=== PATIENT | male | born 1950 | race African-American/Black ===

== ENCOUNTER 2017-05-16 23:13 | Emergency (ER) | payer SELFPAY ==
[~2017-05-16] VITALS: Ht 170.2 cm; Wt 84.0 kg
[2017-05-16 23:15] VITALS: BP 220/110; PULSE 83; RESP 24; TEMP 97.9; O2SAT 99
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
[2017-05-17] MEDS ORDERED: MORPHINE SULFATE 4 MG/ML INJ IV PUSH ONE (00:30)
[2017-05-17] MEDS ORDERED: ONDANSETRON HCL 4 MG/2 ML VIAL IVP ONE (00:30)
[2017-05-17] MEDS ORDERED: IOHEXOL 350 MG/ML 10 ML VIAL (for RAD DIAG) IVCONTRAST ONE (01:14)
[2017-05-17 01:17] LABS: AUTOMATED NEUTROPHIL # 9.3 TH/MM3 (1.8-7.7); BASOPHIL % 0.4 % (0.0-2.0); HEMATOCRIT 47.1 % (39.0-51.0); HEMO FLAGS DIFF FINAL; LYMPH % 9.5 % (9.0-44.0); MEAN CELL VOLUME 94.4 FL (80.0-100.0); MEAN CORPUSCULAR HEMOGLOBIN 32.6 PG (27.0-34.0); MEAN CORPUSCULAR HGB CONC 34.5 % (32.0-36.0); MONO % 4.6 % (0.0-8.0); NEUT % 85.5 % (16.0-70.0); PLATELET COUNT 299 TH/MM3 (150-450); RED BLOOD COUNT 4.99 MIL/MM3 (4.50-5.90); RED CELL DISTRIBUTION WIDTH 14.2 % (11.6-17.2); WHITE BLOOD COUNT 10.9 TH/MM3 (4.0-11.0)
--- NOTE | 2017-05-17 01:25 | RADRPT ---
EXAM DATE/TIME: 05/17/2017 01:01 [facility] COMPARISON: No previous studies available for comparison. INDICATIONS : Abdominal pain. MEDICAL HISTORY : None. SURGICAL HISTORY : None. ENCOUNTER: Initial ACUITY: 1 day PAIN SCORE: 0/10 LOCATION: Bilateral chest FINDINGS: Single AP view of the chest. The lungs are clear. Cardiomediastinal silhouette within normal limits. No evidence of pleural effusion or pneumothorax. CONCLUSION: No acute cardiopulmonary disease identified. Wilfrid Villarreal MD on May 17, 2017 at 1:23 Board Certified Radiologist. This report was verified electronically.
[2017-05-17 01:26] LABS: BLOOD, URINE NEG (NEG); COMMENT (UR) CULT NOT INDICATED; CULTURE IF INDICATED CULT NOT INDICATED; GLUCOSE,URINE 70 mg/dL (NEG); KETONE, URINE 80 mg/dL (NEG); MUCUS URINE FEW /lpf (OCC); NITRITE,URINE NEG (NEG); PH, URINE 8.5 (5.0-8.5); URINE COLOR LIGHT-YELLOW (YELLW/STRAW)
--- NOTE | 2017-05-17 01:36 | RADRPT ---
EXAM DATE/TIME: 05/17/2017 01:12 [facility] COMPARISON: No previous studies available for comparison. INDICATIONS : Abdominal pain with nausea and vomiting. IV CONTRAST: 95 cc Omnipaque 350 (iohexol) IV ORAL CONTRAST: No oral contrast ingested. RADIATION DOSE: 5.92 CTDIvol (mGy) MEDICAL HISTORY : None SURGICAL HISTORY : None. ENCOUNTER: Initial ACUITY: 1 day PAIN SCALE: 4/10 LOCATION: Bilateral abdomen TECHNIQUE: Volumetric scanning of the abdomen and pelvis was performed. Using automated exposure control and ad justment of the mA and/or kV according to patient size, radiation dose was kept as low as reasonably achievable to obtain optimal diagnostic quality images. DICOM format image data is available electro nically for review and comparison. FINDINGS: LOWER LUNGS: The visualized lower lungs are clear. LIVER: 5.6 x 3.9 x 3.9 cm mixed density lesion in the left lobe of the liver on image #14 of the axial image s. It demonstrates peripheral discontinuous nodular enhancement suggesting a hemangioma. Liver is oth erwise within normal limits. Gallbladder unremarkable. SPLEEN: Normal size without lesion. PANCREAS: Within normal limits. KIDNEYS: Multiple renal cysts bilaterally. No hydronephrosis. ADRENAL GLANDS: Within normal limits. VASCULAR: There is no aortic aneurysm. BOWEL/MESENTERY: No evidence of bowel dilatation. No free air or free fluid. Appendix not identified. ABDOMINAL WALL: Within normal limits. RETROPERITONEUM: There is no lymphadenopathy. BLADDER: No wall thickening or mass. REPRODUCTIVE: Enlarged prostate measuring 5.3 cm in axial dimension. INGUINAL: There is no lymphadenopathy or hernia. MUSCULOSKELETAL: Prominent right-sided facet arthrosis at L5-S1. Large bridging osteophyte right sacroiliac joint. CONCLUSION: 1. 5 cm lesion in the left lobe of the liver likely representing a hemangioma. This could be confirme d with a routine followup abdominal MRI with and without contrast. 2. Enlarged prostate. 3. Prominent facet arthrosis of the lower lumbar spine and prominent right-sided sacroiliac joint ost eoarthritis. Wilfird Villarreal MD on May 17, 2017 at 1:28 Board Certified Radiologist. This report was verified electronically.
[2017-05-17 01:38] LABS: ALKALINE PHOSPHATASE 89 U/L (45-117); ALT (GPT) 36 U/L (12-78); ANION GAP 11 MEQ/L (5-15); AST (GOT) 48 U/L (15-37); BICARBONATE 22.6 MEQ/L (21.0-32.0); BLOOD UREA NITROGEN 10 MG/DL (7-18); CHLORIDE 101 MEQ/L (98-107); GLOMERULAR FILTRATION RATE 61 ML/MIN (>89); SODIUM (NA) 135 MEQ/L (136-145); TOTAL BILIRUBIN ADULT 0.9 MG/DL (0.2-1.0)
[2017-05-17 01:39] LABS: APTT (PATIENT) 25.4 SEC (24.3-30.1); POTASSIUM 4.1 MEQ/L (3.5-5.1); PROTHROMBIN TIME - PATIENT 11.3 SEC (9.8-11.6)
[2017-05-17] MEDS ORDERED: TYLE325T PO (02:46)
--- NOTE | 2017-05-17 12:12 | EKG ---
Date Performed: 05/17/2017 Time Performed: 01:22:56 PTAGE: 66 years EKG: Sinus rhythm WITH SINUS ARRHYTHMIA WITH FIRST DEGREE AV BLOCK RIGHT ATRIAL ENLARGEMENT LEFT ATRIAL ENLARGEMENT PO SSIBLE LEFT VENTRICULAR HYPERTROPHY Repolarization abnormality vs. pericarditis ABNORMAL ECG NO PREVIOUS TRACING DOCTOR: Kiet Hernandez Interpretating Date/Time 05/17/2017 12:12:09
== END 2017-05-17 03:00 | disposition home or self-care (01) ==
LOC: NEPE 23:13
DX: R10.84 Generalized abdominal pain (principal); R06.4 Hyperventilation; R94.31 Abnormal electrocardiogram [ECG] [EKG]
CPT/HCPCS: 71010; 74177; 80053; 81001; 83690; 84484; 85025; 85610; 85730; 93005; 96374; 96375; 99285; J2270; J2405; Q9967